=== PATIENT | male | born 1970 | race Caucasian/White ===

== ENCOUNTER → 2022-01-29 | Outpatient (CLI) | payer OTHER | END | disposition home or self-care (01) | LOC: LABWHC1 07:08 | PROVIDERS: ATTEND Urology | DX: R68.82 Decreased libido (principal) | CPT/HCPCS: 36415; 84402; 84403 ==

== ENCOUNTER → 2024-03-09 | Outpatient (CLI) | payer OTHER ==
--- NOTE | 2024-03-14 02:35 | CT ---
EXAMINATION TYPE: CT iac wo con CT DLP: 760.80 mGycm, Automated exposure control for dose reduction was used. DATE OF EXAM: 03/09/2024 3:21 PM INDICATION: Patient age:Male; 53 years old; Reason for study: H92.03 OTALGIA, BILATERAL R43.9 DISTURB OF SMELL; [facility]. COMPARISON: . TECHNIQUE: Multiple thin axial images were obtained through the temporal bones and internal auditory canals. Additional coronal reformatted images were obtained. No IV contrast was utilized. CT Contrast: Contrast used: mL of , none. FINDINGS: Right Temporal Bone: External Ear: The external auditory canal is unremarkable, The tympanic membrane is present and unrem arkable. Middle Ear: The ossicles demonstrate a normal appearance. Prussak's space is clear and the scutum i s intact. There is no evidence of osseous erosion and the tegmen tympani is intact. Inner Ear: Cochlea, vestibule and semi circular canals are unremarkable. No evidence of carotid rajat l dehiscence. Two and a half turns of the cochlea are identified. The vestibular aqueduct is not enl arged. Mastoid Air Cells: Partial opacification of multiple mastoid air cells bilaterally, without evidence of trabecular/osseous destruction. Internal Auditory Canal: The internal auditory canal is unremarkable. Left Temporal Bone: External Ear: The external auditory canal is unremarkable, The tympanic membrane is present and unrem arkable. Middle Ear: The ossicles demonstrate a normal appearance. Prussak's space is clear and the scutum i s intact. There is no evidence of osseous erosion and the tegmen tympani is intact. Inner Ear: Cochlea, vestibule and semi circular canals are unremarkable. No evidence of carotid rajat l dehiscence. Two and a half turns of the cochlea are identified. The vestibular aqueduct is not enl arged. Mastoid Air Cells: Partial opacification of multiple mastoid air cells bilaterally, without evidence of trabecular/osseous destruction. Internal Auditory Canal: The internal auditory canal is unremarkable. IMPRESSION: Partial opacification of multiple mastoid air cells bilaterally, without evidence of trabecular/osseo us destruction.
--- NOTE | 2024-03-14 02:54 | CT ---
EXAMINATION TYPE: CT sinus wo con CT DLP: 760.80 mGycm, Automated exposure control for dose reduction was used. DATE OF EXAM: 03/09/2024 3:21 PM COMPARISON: . CLINICAL INDICATION:Male, 53 years old with history of H92.03 OTALGIA, BILATERAL R43.9 DISTURB OF SME LL; , B/L HEARING ISSUES. TECHNIQUE: Multiple thin axial images were obtained through the paranasal sinuses without the use of IV contrast. Additional coronal and sagittal reformatted images were submitted for evaluation. Contrast used: none Oral contrast used: none FINDINGS: Frontal sinuses: Normally developed and aerated. Frontal Recess: Clear Maxillary Sinuses: . Normally developed. There is mild lobular mucosal thickening at the periphery of each. Maxillary Infundibula(OMC): Clear, . Ethmoid sinuses: Normally developed and aerated. Ethmoidal notch: Protected and abutting the lateral lamina. Sphenoid sinuses: Normally developed and aerated. There is complete sellar sphenoid sinus pneumatizat ion without evidence of dehiscence. No dehiscence of carotid canal. No evidence of optic nerve dehis cence within the sphenoid sinus. Sphenoethmoidal recesses: Partially occluded by soft tissue. Nasal septum: Mild S-shaped deviation.. Nasal Turbinates: Within normal limits. Mastoid air cells & middle ears: The air cells are clear. The middle ears are grossly unremarkable. Modified Soft tissues & Brain: Partially seen without gross abnormality. Globes are intact. Other: Cribriform plate demonstrates symmetric Keros classification type 2 cribriform plate. No evidence of bony dehiscence of skull base. Lamina papyracea is intact without evidence of remote orbital fracture or orbital prolapse into the e thmoid sinus. Please refer to CT IAC report for further description of findings. IMPRESSION: 1. Mild lobular mucosal thickening of the maxillary sinuses. OMCs appear patent.
== END | disposition home or self-care (01) ==
LOC: RADCTMAIN 14:57
PROVIDERS: ATTEND Otolaryngology
DX: J34.89 Other specified disorders of nose and nasal sinuses (principal); H74.8X3 Other specified disorders of middle ear and mastoid, bilateral; H92.03 Otalgia, bilateral; R43.9 Unspecified disturbances of smell and taste
CPT/HCPCS: 70480; 70486